=== PATIENT | male | born 1955 | race Caucasian/White ===

== ENCOUNTER → 2019-01-20 | Outpatient (CLI) | payer BC ==
[2019-01-20 16:56] LABS: Albumin 4.3 g/dL (3.80-4.90); Albumin/Globulin Ratio 2.15 (1.60-3.17); Anion Gap 7.1 mmol/L (4.00-12.00); Calcium 9.7 mg/dL (8.7-10.3); Carbon Dioxide 28.9 mmol/L (21.6-31.8); LDL Cholesterol,Calculated 25.2 mg/dL (0.0-131.0); Potassium 3.7 mmol/L (3.5-5.5); Total Bilirubin 0.5 mg/dL (0.3-1.2); Total Protein 6.3 g/dL (6.2-8.2); VLDL Calculation 19.8 mg/dL (5.00-40.00)
[2019-01-20 16:57] LABS: Hemoglobin A1C 7.3 % (4.0-6.0)
== END | disposition home or self-care (01) ==
LOC: LABWHC1 08:17
PROVIDERS: ATTEND Internal Medicine Endocrinology, Diabetes & Metabolism
DX: E11.65 Type 2 diabetes mellitus with hyperglycemia (principal)
CPT/HCPCS: 36415; 80053; 80061; 82043; 82570; 83036; 84443

== ENCOUNTER → 2020-03-28 | Outpatient (CLI) | payer MEDICARE ==
[2020-03-28 13:21] LABS: Urine Creatinine 130.4 mg/dL
[2020-03-28 15:13] LABS: Hemoglobin A1C 8.2 % (4.0-6.0)
[2020-03-28 17:15] LABS: African American GFR (CKD) 82.4 (60.0-200.0); Albumin/Globulin Ratio 1.74 (1.60-3.17); Anion Gap 9.6 mmol/L (4.00-12.00); BUN/Creat Ratio 19.09 Ratio (12.00-20.00); Calcium 9.5 mg/dL (8.7-10.3); Carbon Dioxide 29.4 mmol/L (21.6-31.8); Chol/HDL Ratio 3.35; Globulin 2.3 g/dL (1.6-3.3); LDL Cholesterol,Calculated 36.4 mg/dL (0.0-131.0); Non-African American GFR(CKD) 71.1 (60.0-200.0); Potassium 4.1 mmol/L (3.5-5.5); Total Bilirubin 0.5 mg/dL (0.3-1.2); Total Protein 6.3 g/dL (6.2-8.2); VLDL Calculation 17.6 mg/dL (5.00-40.00)
== END | disposition home or self-care (01) ==
LOC: LABWHC1 07:59
PROVIDERS: ATTEND Internal Medicine Endocrinology, Diabetes & Metabolism
DX: E11.65 Type 2 diabetes mellitus with hyperglycemia (principal)
CPT/HCPCS: 36415; 80053; 80061; 82043; 82570; 83036; 84443

== ENCOUNTER → 2020-07-03 | Outpatient (CLI) | payer MEDICARE ==
[2020-07-03 17:56] LABS: African American GFR (CKD) 81.8 (60.0-200.0); Albumin 4.3 g/dL (3.80-4.90); Albumin/Globulin Ratio 1.79 (1.60-3.17); Anion Gap 14.8 mmol/L (4.00-12.00); BUN/Creat Ratio 15.45 Ratio (12.00-20.00); Calcium 9.6 mg/dL (8.7-10.3); Carbon Dioxide 25.2 mmol/L (21.6-31.8); Chol/HDL Ratio 3.57; Globulin 2.4 g/dL (1.6-3.3); LDL Cholesterol,Calculated 13.4 mg/dL (0.0-131.0); Non-African American GFR(CKD) 70.6 (60.0-200.0); Potassium 3.7 mmol/L (3.5-5.5); Total Bilirubin 0.9 mg/dL (0.2-1.2); Total Protein 6.7 g/dL (6.2-8.2); VLDL Calculation 22.6 mg/dL (5.00-40.00)
== END | disposition home or self-care (01) ==
LOC: LABWHC1 09:21
PROVIDERS: ATTEND Internal Medicine Endocrinology, Diabetes & Metabolism
DX: E11.65 Type 2 diabetes mellitus with hyperglycemia (principal)
CPT/HCPCS: 36415; 80053; 80061; 82043; 82570; 84443

== ENCOUNTER → 2021-01-11 | Outpatient (CLI) | payer MEDICARE ==
[2021-01-11 20:53] LABS: Hemoglobin A1C 7.2 % (4.0-6.0)
[2021-01-11 23:21] LABS: African American GFR (CKD) 104.2 (60.0-200.0); Albumin 4.3 g/dL (3.80-4.90); Albumin/Globulin Ratio 2.15 (1.60-3.17); Anion Gap 11.1 mmol/L (4.00-12.00); BUN/Creat Ratio 22.22 Ratio (12.00-20.00); Carbon Dioxide 28.9 mmol/L (21.6-31.8); Chol/HDL Ratio 3.09; LDL Cholesterol,Calculated 26.8 mg/dL (0.0-131.0); Non-African American GFR(CKD) 89.9 (60.0-200.0); Potassium 3.2 mmol/L (3.5-5.5); Total Bilirubin 0.7 mg/dL (0.2-1.2); Total Protein 6.3 g/dL (6.2-8.2); VLDL Calculation 19.2 mg/dL (5.00-40.00)
== END | disposition home or self-care (01) ==
LOC: LABWHC1 11:10
PROVIDERS: ATTEND Internal Medicine Endocrinology, Diabetes & Metabolism
DX: E11.65 Type 2 diabetes mellitus with hyperglycemia (principal)
CPT/HCPCS: 36415; 80053; 80061; 82043; 82570; 83036; 84443

== ENCOUNTER 2021-05-22 10:03 | Outpatient (CLI) | payer MEDICARE | END 2021-05-22 10:32 | disposition home or self-care (01) | LOC: LABWHC1 10:03 | PROVIDERS: ATTEND Family Medicine | DX: Z53.9 Procedure and treatment not carried out, unspecified reason (principal) ==

== ENCOUNTER → 2021-05-27 | Outpatient (CLI) | payer MEDICARE ==
[2021-05-27 11:49] LABS: Urine Creatinine 144.6 mg/dL
[2021-05-27 12:29] LABS: Hemoglobin A1C 7.1 % (4.0-6.0)
[2021-05-27 14:12] LABS: African American GFR (CKD) 103.5 (60.0-200.0); Albumin 4.1 g/dL (3.80-4.90); Albumin/Globulin Ratio 1.86 (1.60-3.17); BUN/Creat Ratio 21.11 Ratio (12.00-20.00); Calcium 9.4 mg/dL (8.7-10.3); Chol/HDL Ratio 2.35; Globulin 2.2 g/dL (1.6-3.3); Non-African American GFR(CKD) 89.3 (60.0-200.0); Potassium 3.9 mmol/L (3.5-5.5); Total Bilirubin 0.7 mg/dL (0.2-1.2); Total Protein 6.3 g/dL (6.2-8.2)
== END | disposition home or self-care (01) ==
LOC: LABWHC1 07:01
PROVIDERS: ATTEND Internal Medicine Endocrinology, Diabetes & Metabolism
DX: E11.65 Type 2 diabetes mellitus with hyperglycemia (principal)
CPT/HCPCS: 36415; 80053; 80061; 82043; 82570; 83036; 84443

== ENCOUNTER → 2021-10-08 | Outpatient (CLI) | payer MEDICARE ==
[2021-10-08 13:58] LABS: Appearance,Urine Clear (Clear); Bilirubin,Urine Negative (Negative); Blood,Urine Negative (Negative); Color,Urine Yellow; Glucose,Urine (UA) Negative (Negative); Ketones,Urine Negative (Negative); Leukocyte Esterase,Urine Negative (Negative); Mucus,Urine Rare /hpf; Nitrite,Urine Negative (Negative); PH, Urine 6.5 (5.0-8.0); Protein,Urine 1+ (Negative); Specific Gravity,Urine 1.026 (1.001-1.035); Squamous Epithelial Cell,Urine <1 /hpf (0-4); Urobilinogen,Urine <2.0 mg/dL (<2.0); WBC,Urine 1 /hpf (0-5)
== END | disposition home or self-care (01) ==
LOC: LABWHC1 07:05
PROVIDERS: ATTEND Specialist
DX: Z01.812 Encounter for preprocedural laboratory examination (principal); M54.12 Radiculopathy, cervical region; Z98.1 Arthrodesis status; M47.12 Other spondylosis with myelopathy, cervical region
CPT/HCPCS: 81001

== ENCOUNTER → 2021-12-31 | Outpatient (CLI) | payer MEDICARE ==
--- NOTE | 2021-12-31 19:54 | CT ---
EXAMINATION TYPE: CT cervical spine wo con CT DLP: 994.20 mGycm, Automated exposure control for dose reduction was used. DATE OF EXAM: 12/31/2021 3:49 PM COMPARISON: None. CLINICAL INDICATION:Male, 66 years old with history of M47.12, recent cervical fusion evaluation TECHNIQUE: Axial CT images from the skull base to the inferior aspect of T2 we obtained without intra venous contrast. Coronal and sagittal reformatted images were also reviewed. FINDINGS: Fracture: None. Osseous structures: Fixation hardware involving C4, C5, C6 and C7. Hardware appears intact. Multileve l degenerative disc disease changes with endplate spurring and disc osteophyte complex's. Vertebral alignment: Straightening of the cervical alignment. Spinal canal/Neural Foramina: No evidence of significant spinal canal narrowing. Facet joint uncovert ebral joint arthropathy scattered throughout the cervical spine with varying degrees of neural forami nal stenosis worse at C6-C7 bilaterally. Neck soft tissues: Prevertebral soft tissues are within normal limits. 3 mm left thyroid lobe nodule. Other: The airway is patent. The lung apices are clear. Mild scattered multifocal mucosal thickening. IMPRESSION: 1. Postsurgical changes of C4-C7 with hardware intact. No evidence for acute fracture. 2. Neural foraminal narrowing at worse at C6-C7 bilaterally secondary to facet joint uncovertebral j oint arthropathy.
== END | disposition home or self-care (01) ==
LOC: RADCTMAIN 15:21
PROVIDERS: ATTEND Specialist
DX: M47.12 Other spondylosis with myelopathy, cervical region (principal); M99.71 Connective tissue and disc stenosis of intervertebral foramina of cervical region; Z98.1 Arthrodesis status
CPT/HCPCS: 72125

== ENCOUNTER → 2022-01-20 | Outpatient (CLI) | payer MEDICARE ==
--- NOTE | 2022-01-20 12:09 | CT ---
EXAMINATION TYPE: CT shoulder RT wo con DATE OF EXAM: 01/20/2022 COMPARISON: Outside radiographs 01/02/2022 HISTORY: 66-year-old male M19.011, Right shoulder pain no injury TECHNIQUE: Contiguous axial scanning of the right shoulder without IV contrast. Coronal and sagittal reconstructions performed. CT DLP: 375 mGycm Automated exposure control for dose reduction was used. FINDINGS: ACDF hardware partially visualized. Moderate degenerative joint space narrowing at the AC joint with marginal spurring and capsular hypertrophy. No atrophy of the rotator cuff musculature. No effusion within the subacromial/subdeltoid bursa. Suba cromial space is preserved. However, there is bony irregularity at the greater and lesser tuberosity. Bony spurring along the bic ipital groove. There is moderate to severe narrowing of cartilage and joint space posteriorly along the glenohumeral joint with some bony remodeling resulting in 16 degrees of glenoid retroversion. Associated subchond ral cystic change and marginal spurring is present. Mild overall loss of posterior and inferior gleno id bone stock. No acute fracture seen. No subluxation or dislocation. IMPRESSION: 1. MODERATE OVERALL GLENOHUMERAL JOINT OA BUT WITH MORE SEVERE LOSS OF CARTILAGE AND JOINT SPACE POST ERIORLY RESULTING IN 16 DEGREES OF GLENOID RETROVERSION AND MILD LOSS OF GLENOID BONE STOCK POSTERIOR LY AND INFERIORLY. 2. MODERATE AC JOINT OA. 3. BONY SPURRING AT THE GREATER AND LESSER TUBEROSITIES COMPATIBLE CHRONIC ROTATOR CUFF TENDINOPATHY. THERE IS NO ROTATOR CUFF MUSCLE ATROPHY.
== END | disposition home or self-care (01) ==
LOC: RADCTMAIN 09:26
PROVIDERS: ATTEND Orthopaedic Surgery
DX: M19.011 Primary osteoarthritis, right shoulder (principal); M25.811 Other specified joint disorders, right shoulder

== ENCOUNTER 2022-05-20 11:07 | Inpatient (IN) | payer MEDICARE ==
--- NOTE | 2022-05-19 08:48 | P.HPOR ---
History of Present Illness H&P Date: 05/19/22 Chief Complaint: Right shoulder pain The patient is a 66-year-old [id number]-[id number] retired male presents with progressive right shoulder pain for the past several years worsening recently. He is having anterior pain particularly with overhead activity and at night. He tried medications in addition to therapy and injections without much relief. He feels it's getting worse. Review of Systems As per HPI Past Medical History Past Medical History: Diabetes Mellitus, Hypertension Past Surgical History: Bariatric Surgery, Orthopedic Surgery (Bilateral knee arthroscopy, cervical fusion) Smoking Status: Never smoker Past Alcohol Use History: Occasional Medications and Allergies Home Medications and Allergies Comment(s): Actos, amitriptyline, atenolol, atorvastatin, gabapentin, hydrocodone, metformin, omeprazole, meclizine. 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 HEENT exam is nonfocal. He has limited cervical spine motion with negative Spurling's. His distal neurovascular exam appears intact in the right upper extremity. - Diagnostic results Shoulder x-ray: image reviewed (3 views of the right shoulder shows severe glenohumeral joint space narrowing with wjmt-lq-fims changes.) Assessment and Plan Assessment: Right severe glenohumeral joint osteoarthrosis Fqj-cstbzrd-ebtszughn dependent diabetes Obesity Plan: I talked to the patient length regarding his condition along with treatment options. This point he is having persistent significant symptoms related to osteoarthrosis despite conservative measures. After thorough discussion he opted to proceed with surgery. We'll plan to proceed with right total shoulder arthroplasty. Risks and benefit were discussed at length in layman's terms. Time with Patient: Less than 30
[2022-05-19 10:06] VITALS: BMI 32.5
[~2022-05-20 11:07] MED LIST: ACETAMINOPHEN TAB 500 MG TAB PO PRN; DEXAMETHASONE SOD PHOSPHATE 4 MG/ML 1 ML VIAL IV ONE; HYDROmorphone 0.5 MG/0.5 ML SYRINGE IVP PRN; LIDOCAINE 1% (10MG/ML) FOR IV START INTRADERMA PRN; MELOXICAM 7.5 MG TAB PO PRN; MIDAZOLAM 2 MG/2 ML VIAL IV PRN; ONDANSETRON 4 MG/2 ML VIAL IVP ONE; TRANEXAMIC ACID IN NACL,ISO-OS 1,000 MG in SALINE 1 100ML.BAG IVPB PRN
[2022-05-20] MEDS ORDERED: ONDANSETRON 4 MG/2 ML VIAL ONE (12:17)
[2022-05-20 12:18] LABS: Glucose,Whole Blood 106 mg/dL (70-110)
[2022-05-20] MEDS: LACTATED RINGERS 1,000 ML IV SCH (12:20)
[2022-05-20] MEDS ORDERED: fentaNYL (PF) 50 MCG/ML 2 ML AMP IVP ONE (12:28)
--- NOTE | 2022-05-20 12:50 | P.ANPRN ---
Procedure Note - Anesthesia - Nerve Block Performed Right Interscalene Single Time Out Performed: Yes ([id number]) Date of Procedure: 05/20/22 Procedure Start Time: : Procedure Stop Time: : Location of Patient: PreOp Indication: Acute Post-Operative Pain, Requested by Surgeon Specifically requested for management of pain by : Zach Maradiaga Sedation Type: Sedate with meaningful contact maintained Preparation: Sterile Prep Position: Supine Catheter: None Needle Types: Pajunk Needle Gauge: 21 Ultrasound used to visualize needle placement: Yes Ultrasound used to observe medication spread: Yes Injectate: 0.5% Ropivacaine (see comment for volume) (30cc) Blood Aspirated: No Pain Paresthesia on Injection Noted: No Resistance on Injection: Normal Image Stored and Saved: Yes Events: Uneventful and Well Tolerated
[2022-05-20] MEDS ORDERED: ROCURONIUM 10 MG/ML (5 ML VIAL) IV ONE (13:00)
[2022-05-20] MEDS ORDERED: PHENYLEPHRINE-0.9% NACL SYG 1,000 MCG/10 ML SYRINGE ONE (13:00)
[2022-05-20] MEDS ORDERED: fentaNYL (PF) 50 MCG/ML 2 ML AMP ONE (13:00)
[2022-05-20] MEDS ORDERED: SUCCINYLCHOLINE CHLORIDE 200 MG/10 ML VIAL IV ONE (13:00)
[2022-05-20] MEDS ORDERED: TRANEXAMIC ACID IN NACL,ISO-OS 1,000 MG/100 ML BAG ONE (13:00)
[2022-05-20] MEDS ORDERED: ROPIVACAINE 5 MG/ML 30 ML VIAL ONE (13:00)
[2022-05-20] MEDS ORDERED: GLYCOPYRROLATE 0.2 MG/ML 2 ML VIAL ONE (13:00)
[2022-05-20] MEDS ORDERED: NEOSTIGMINE 1 MG/ML 10 ML VIAL ONE (13:00)
[2022-05-20] MEDS ORDERED: LIDOCAINE 2% INJ 20 MG/ML (2 ML VIAL) ONE (13:00)
[2022-05-20] MEDS ORDERED: ePHEDrine 50 MG/ML 1 ML VIAL ONE (13:00)
[2022-05-20] MEDS ORDERED: PROPOFOL 10 MG/ML 20 ML VIAL IV ONE (13:00)
[2022-05-20] MEDS ORDERED: ceFAZolin 1,000 MG in SODIUM CHLORIDE 0.9% 1,000 ML IRRIGATION ONE (13:44)
[2022-05-20] MEDS ORDERED: SENNOSIDES-DOCUSATE SODIUM 1 EACH TAB PO PRN (15:13)
[2022-05-20] MEDS ORDERED: HYDROmorphone 0.5 MG/0.5 ML SYRINGE IVP PRN (15:13)
[2022-05-20] MEDS ORDERED: ONDANSETRON 4 MG/2 ML VIAL IVP PRN (15:13)
[2022-05-20] MEDS ORDERED: HYDROcodone/APAP 10-325MG 1 EACH TAB PO PRN (15:15)
[2022-05-20] MEDS ORDERED: LACTATED RINGERS 1,000 ML IV ONE (15:20)
--- NOTE | 2022-05-20 15:40 | P.OP ---
Date of Procedure: 05/20/22 Preoperative Diagnosis: Severe right glenohumeral joint osteoarthrosis Postoperative Diagnosis: Same Procedure(s) Performed: Right total shoulder arthroplasty Implants: Arthrex eclipse size 49 x 18 humeral head, large cage screw, 49 mm trunnion, large glenoid. Anesthesia: alex WEBB Surgeon: Zach Maradiaga Offset Plate Maker #1: Silvio Harmon Estimated Blood Loss (ml): 200 Pathology: other (Humeral head) Condition: stable Disposition: PACU Indications for Procedure: The patient's 67-year-old male who presents with progressive right shoulder pain secondary to osteoporosis despite conservative measures. A discussion of the r isks and benefits of operative intervention versus continued conservative measures was made with patient. He opted to proceed with surgery. Operative risks to include infection, neurovascular injury, development of blood clots, possible component loosening/failure need for subsequent procedures was discussed. Informed consent was obtained. Operative Findings: As below Description of Procedure: The patient was brought to the operating room, and after induction of general anesthesia was placed in the beachchair position. The bony prominences were appropriately padded. The right upper extremity was prepped and draped in normal fashion. A deltopectoral incision was then made lateral to the coracoid process extending approximately 12 cm. The skin was incised sharply. Subcutaneous tissues were divided bluntly. Electrocautery was used for hemostasis. The deltopectoral interval was identified and the cephalic vein gently retracted laterally with the deltoid. Subdeltoid adhesions were bluntly dissected. A self-retaining retractor was placed. The clavipectoral fascia was opened and the conjoined tendon gently retracted medially. The upper one third of the pectoralis major was released to help facilitate exposure. The biceps was identified and the sheath was opened. The rotator interval was opened. The biceps was tenotomized and allowed to retract distally. The subscap was peeled off the lesser tuberosity and tagged. The humeral head was then exposed releasing the capsule off the humeral neck. The shoulder was gently dislocated. The cutting guide was placed planning on a cut flush with the rotator cuff insertion and 30 of retroversion. The cutting block was pinned in place. The humeral head cut was then made. The metaphyseal trunnion measured 49 mm. The central trunnion was hand drilled. Residual inferior osteophytes were carefully removed flush with the [place] cortical bone. A humeral neck protecting plate was placed. A posterior glenoid retractor was placed. The glenoid was then exposed releasing the labrum from the 12-6 o'clock position. Residual labral tissue was removed. The glenoid sized at a large as preoperatively planned. A guidewire was then inserted utilizing the guide as preoperatively planned. The glenoid was reamed down to a bleeding bony surface. The central peg hole was drilled. The alignment guide was placed in the peripheral peg holes drilled. The trial large glenoid was placed and was fully seated. There was good anterior to posterior and inferior to superior fit. The trial component was removed. Pulsatile lavage was utilized. The bony surface was dried. The peripheral peg holes were then pressurized with cement utilizing a syringe. Excess cement was removed. A glenoid component was then placed and was fully seated. This was gently impacted. This was held in place until the cement had sufficiently hardened. Attention was then paid again towards preparing the proximal humerus. The large cage screw was inserted over the trunion after it was fully seated. Good purchase was obtained. A trial 49 x 18 mm head was placed. The shoulder was gently reduced. It was taken through a range of motion. It was felt to be stable in flexion and extension with internal and external rotation. I felt there was adequate adventism of soft tissue tension. The shoulder was gently dislocated. The trial components were then removed. The alignment guide was placed for placement of the 2.6 mm fiber tacks along the medial lesser tuberosity loaded with fiber tape for reattachment of the subscapularis. The humeral head was then impacted. The shoulder was then gently reduced and taken through range of motion and was felt to be stable. Pul satile lavage was utilized. The subscapularis repair was then completed with 2 lateral swivel lock anchors. The rotator interval was closed with #2 Ethibond suture. She had minimal drainage at this point therefore a deep drain was not placed. The deltopectoral interval was closed with interrupted 2-0 Vicryl sutures. The subcu tissues were reapproximated with interrupted 2-0 Vicryl sutures. The skin was reapproximated with 3-0 subcuticular Prolene suture. Steri-Strips were applied. A sterile dressing was applied in addition to a sling. The patient was then awoken from general anesthesia and transferred to recovery room in good condition. Blood loss was estimated at 200 mL. No complications were incurred. Sponge and needle counts were correct at the end the case. Tae TAN assisted during the major components the case to include positioning, exposure, resection, implantation, and closure.
--- NOTE | 2022-05-20 16:15 | XR ---
EXAMINATION TYPE: XR shoulder limited RT DATE OF EXAM: 05/20/2022 CLINICAL HISTORY: Right shoulder pain and arthritis. TECHNIQUE: Single frontal view of the right shoulder is obtained postoperatively. COMPARISON: CT right shoulder January 20, 2022. FINDINGS: Metallic prosthesis in the medial aspect humeral head now present. Alignment and position a ppear satisfactory. Diminish inspiration incidentally noted. IMPRESSION: As above.
[2022-05-20 21:14] LABS: Glucose,Whole Blood 233 mg/dL (70-110)
[2022-05-21] MEDS ORDERED: TEMAZEPAM 15 MG CAP PO PRN (01:26)
[2022-05-21 01:48] VITALS: RESP 18
[2022-05-21] MEDS: LACTATED RINGERS 1,000 ML IV SCH (02:22)
[2022-05-21] MEDS: HYDROmorphone 1 MG/ML 1 ML SYRINGE IVP PRN ×2 (05:34→09:01)
[2022-05-21 07:07] LABS: Glucose,Whole Blood 215 mg/dL (70-110)
[2022-05-21 08:00] VITALS: BP 116/64; PULSE 70; TEMP 98.8
[2022-05-21] MEDS ORDERED: hydrOXYzine pamoate 25 MG CAP PO PRN (08:02)
[2022-05-21 09:17] LABS: Basophils # (A) 0.02 X 10*3/uL (0.00-0.10); Basophils % (A) 0.2 %; Eosinophils # (A) 0.01 X 10*3/uL (0.04-0.35); Eosinophils % (A) 0.1 %; HCT 35.8 % (39.6-50.0); Immature Grans, Automated 0.5 %; Lymphocytes # (A) 1.06 X 10*3/uL (0.90-5.00); MCH 29.9 pg (27.0-32.0); MCHC 33.5 g/dL (32.0-37.0); MCV 89.1 fL (80.0-97.0); Mean Platelet Volume 10.5 fL (9.5-12.2); Monocytes # (A) 0.74 X 10*3/uL (0.20-1.00); NRBC Per 100 WBC 0 /100 WBCS (0.0-0.0); Neutrophils # (A) 8.73 X 10*3/uL (1.80-7.70); Neutrophils % (A) 82.2 %; Platelet Count 212 X 10*3/uL (140-440); RBC 4.02 X 10*6/uL (4.40-5.60); RDW 13.7 % (11.5-14.5); WBC 10.61 X 10*3/uL (4.50-10.00)
[2022-05-21] MEDS ORDERED: DEXTROSE 50% SYRINGE 50 ML IVP PRN ×2 (09:33)
--- NOTE | 2022-05-21 09:57 | P.PN ---
Subjective Progress Note Date: 05/21/22 Principal diagnosis: Status post right total shoulder arthroplasty Patient evaluated today at bedside, he is resting in his hospital bed. Patient was having a little bit of trouble with pain control this morning, he did utilize some Dilaudid which has helped. Patient does state [place] 10 mg/325 mg as needed at home for other chronic medical issues. Currently patient denies a ny headaches, lightheadedness, chest pain or shortness of breath. Objective - Vital Signs Vital signs: Vital Signs Temp 98.8 F 05/21/22 08:00 Pulse 70 05/21/22 08:00 Resp 18 05/21/22 08:00 BP 116/64 05/21/22 08:00 Pulse Ox 95 05/21/22 08:00 FiO2 Intake & Output 05/20/22 05/21/22 05/21/22 18:59 06:59 18:59 Intake Total 1351 Output Total 800 600 Balance 551 -600 Weight 104.7 kg Intake: IV 1351 Output: Urine 600 600 Estimated Blood Loss 200 - Exam Right lower extremity: Postoperative bandage was removed, Steri-Strips and suture in good position and condition. Ecchymosis and minor swelling are noted in the upper extremity. Elbow extension and flexion are intact, wrist extension and flexion are intact. Sensory exam to light touch throughout the extremity is intact. Radial/ulnar pulses are 2+ - Labs CBC & Chem 7: 05/21/22 05:20 Labs: Abnormal Lab Results - Last 24 Hours (Table) 05/20/22 05/21/22 05/21/22 Range/Units 21:13 05:20 07:06 WBC 10.61 H (4.50-10.00) X 10*3/uL RBC 4.02 L (4.40-5.60) X 10*6/uL Hgb 12.0 L (13.0-17.0) g/dL Hct 35.8 L (39.6-50.0) % Immature Gran # 0.05 H (0.00-0.04) X 10*3/uL Neutrophils # 8.73 H (1.80-7.70) X 10*3/uL Eosinophils # 0.01 L (0.04-0.35) X 10*3/uL POC Glucose (mg/dL) 233 H 215 H (70-110) mg/dL Assessment and Plan Assessment: Postoperative day #1 status post right total shoulder arthroplasty Plan: Pain control, patient will resume [place] 10 mg/325 mg once home DVT prophylaxis, aspirin 325 mg daily for 2 weeks Wound care instructions discussed, showering instructions along with icing instructions were discussed Activity level restrictions were discussed, this to include use of the arm sling Medical recommendations Discharge planning: Patient stable for discharge home today Time with Patient: Less than 30
--- NOTE | 2022-05-21 10:01 | P.DS ---
Providers Date of admission: 05/20/22 11:07 Expected date of discharge: 05/21/22 Attending physician: Zach Maradiaga Consults: 05/20/22 15:15 Consult Physician Routine Consulting Provider: Angie Davison Consult Reason/Comments: Medical Management Do you want consulting provider notified?: Yes Primary care physician: Aissatou Gonzalez DO Hospital Course: Date of admission: 05/20/2022 Date of discharge: 05/21/2022 Admission diagnosis: Status post right total shoulder arthroplasty Discharge diagnosis: Same Attending physician: Dr. Maradiaga Surgical procedures: Right total shoulder arthroplasty Brief history: Patient is a 67-year-old male with a history of progressive primary right shoulder osteoarthritis. At this point patient has failed conservative treatment measures and has opted to proceed with a elective right total shoulder arthroplasty. Hospital course: Details of patient's surgery can be found in operative report. Patient tolerated the procedure well and was subsequently transported to orthopedic floor. Patient's orthopeidc and medical care was provided daily. Patient had daily laboratory tests performed for evaluation of overall blood counts. Patient had daily physical therapy to include strengthening range of motion as well as education with walker ambulation. Patient was treated with aspirin for their postoperative DVT prophylaxis during their inpatient stay. Patient was noted to have a relatively uneventful postoperative course. Patient reported satisfactory pain control with oral pain medications by postoperative day 0. Patient showed satisfactory progress with physical therapy. Patient moved steadily through the program and had no difficulty meeting the goals by postoperative day 1. Given patient's otherwise satisfactory course and having met physical therapy goals, plan is to discharge patient home on postoperative day 1. Discharge condition/disposition: Patient will be discharged home in stable condition. Discharge medications: Instructions are given on resumption of patient's normal daily medications per primary care recommendation, in addition patient will be prescribed [place] 10 mg/325 mg, aspirin 325 mg. Discharge instructions: 1. Wound care and infection precautions, keep incision dry and covered while showering, no lotions, creams, moisturizers. No soaking, tubs, pools, hottubs. Do not scrub over the incision. 2. Utilize arm sling 3. Ice and elevate when necessary. Do not exceed 20 minutes per hour with ice pack. 4. Utilize compression sleeve until seen at first follow up appointment. 7. Pain meds and anticoagulants per prescription. 8. Pain medication has potential to cause constipation. Increase oral fluid and fiber intake. Contact primary care provider if you have not had a bowel movement within 48 hours after discharge 9. No anti-inflammatory medication until discussed at first post operative visit, this including Motrin, Aleve, Mobic, Diclofenac. 10. Follow up in office at 2 weeks postop with Tae Harmon PA-C/Gaurav Martin 11. Follow up with your primary care doctor 7-10 days after discharge. 12. Contact [facility] with any questions, . Procedures: Right total shoulder arthroplasty Patient Condition at Discharge: Good Plan - Discharge Summary Discharge Rx Participant: Yes New Discharge Prescriptions: New HYDROcodone/APAP 10-325MG [[place] 10-325] 1 tab PO Q6HR PRN 7 Days #21 tab PRN Reason: Pain Aspirin 325 mg PO DAILY #14 tab No Action Pioglitazone [Actos] 45 mg PO DAILY Potassium Chloride ER [K-Dur 20] 20 meq PO DAILY Multivit-Min/FA/Lycopen/Lutein [Centrum Silver Tablet] 1 each PO DAILY Tamsulosin HCl [Flomax] 0.4 mg PO BID Gabapentin [Neurontin] 300 mg PO TID Atenolol/Chlorthalidone [Atenolol-Chlorthalidone 100-25] 1 each PO DAILY Meclizine [Antivert] 25 mg PO BID Albuterol Inhaler [Ventolin Hfa Inhaler] 1 - 2 puff INHALATION Q6H PRN PRN Reason: Shortness Of Breath [id number] [Excedrin] 2 each PO ONCE PRN PRN Reason: Pain Atorvastatin [Lipitor] 10 mg PO HS Cetirizine HCl 10 mg PO BID Gabapentin [Neurontin] 800 mg PO TID Amitriptyline HCl [Elavil] 50 mg PO HS Omeprazole 20 mg PO DAILY metFORMIN HCL [Glucophage] 1,000 mg PO BID Rosanna 550 mg PO BID HYDROcodone/APAP 10-325MG [[place] 10-325] 1 tab PO Q6HR PRN PRN Reason: Pain Naproxen Sodium [Aleve] 440 mg PO BID PRN PRN Reason: Pain Discharge Medication List Albuterol Inhaler [Ventolin Hfa Inhaler] 1 - 2 puff INHALATION Q6H PRN 05/19/22 [History] Amitriptyline HCl [Elavil] 50 mg PO HS 05/19/22 [History] [id number]-[id number]-[id number] [phone] [Excedrin] 2 each PO ONCE PRN 05/19/22 [History] Atenolol/Chlorthalidone [Atenolol-Chlorthalidone 100-25] 1 each PO DAILY 05/19/22 [History] Atorvastatin [Lipitor] 10 mg PO HS 05/19/22 [History] Cetirizine HCl 10 mg PO BID 05/19/22 [History] Gabapentin [Neurontin] 300 mg PO TID 05/19/22 [History] Gabapentin [Neurontin] 800 mg PO TID 05/19/22 [History] Rosanna 550 mg PO BID 05/19/22 [History] HYDROcodone/APAP 10-325MG [[place] 10-325] 1 tab PO Q6HR PRN 05/19/22 [History] Meclizine [Antivert] 25 mg PO BID 05/19/22 [History] Multivit-Min/FA/Lycopen/Lutein [Centrum Silver Tablet] 1 each PO DAILY 05/19/22 [History] Naproxen Sodium [Aleve] 440 mg PO BID PRN 05/19/22 [History] Omeprazole 20 mg PO DAILY 05/19/22 [History] Pioglitazone [Actos] 45 mg PO DAILY 05/19/22 [History] Potassium Chloride ER [K-Dur 20] 20 meq PO DAILY 05/19/22 [History] Tamsulosin HCl [Flomax] 0.4 mg PO BID 05/19/22 [History] metFORMIN HCL [Glucophage] 1,000 mg PO BID 05/19/22 [History] Aspirin 325 mg PO DAILY #14 tab 05/21/22 [Rx] HYDROcodone/APAP 10-325MG [[place] 10-325] 1 tab PO Q6HR PRN 7 Days #21 tab 05/21/22 [Rx] Follow up Appointment(s)/Referral(s): Gaurav Figueredo PAC [PHYSICIAN REHABILITATION TEACHER] - 2 Weeks Patient Instructions/Handouts: Shoulder Arthroplasty (DC) Activity/Diet/Wound Care/Special Instructions: Orthopedic Discharge Instructions: 1. Wound care and infection precautions, keep incision dry and covered while showering, no lotions, creams, moisturizers. No soaking, pools, hot tubs. Do not scrub over incision. 2. Nonweightbearing right upper extremity until follow-up. 3. Ice when necessary. Do not exceed 20 minutes per hour with ice pack. 4. Maintain right upper extremity in arm sling at all times. May remove sling to shower 5. Pain meds and anticoagulants per prescription. 6. Pain medication has potential to cause constipation. Increase oral fluid and fiber intake. Contact primary care provider if you have not had a bowel movement within 48 hours after discharge. 7. No anti-inflammatory medication until discussed at first post operative visit, this including Motrin, Aleve, Mobic, Diclofenac. 8. Follow up in office at 2 weeks postop with Tae Harmon PA-C / Gaurav Figueredo PA-C 9. Follow up with your primary care doctor 7-10 days after discharge. 10. Contact [facility] with any questions, . Discharge Disposition: HOME WITH HOME HEALTH SERVICES
--- NOTE | 2022-05-21 11:56 | P.CONS ---
History of Present Illness - Reason for Consult Consult date: 05/21/22 Medical management - History of Present Illness History of present illness; Patient is 66-year-old gentleman with past medical history significant for diabetes mellitus, hypertension who presented to the hospital for elective procedure with orthopedic for right shoulder arthroplasty. Patient has been having right shoulder pain for several years which has been worsening. Patient was seen by orthopedic outpatient and they recommended surgery to which patient agreed. Postoperatively internal medicine team has been consulted for medical management REVIEW OF SYSTEMS: CONSTITUTIONAL: No fever, no malaise, no fatigue. HEENT: No recent visual problems or hearing problems. Denied any sore throat. CARDIOVASCULAR: No chest pain, orthopnea, PND, no palpitations, no syncope. PULMONARY: No shortness of breath, no cough, no hemoptysis. GASTROINTESTINAL: No diarrhea, no nausea, no vomiting, no abdominal pain. NEUROLOGICAL: No headaches, no weakness, no numbness. HEMATOLOGICAL: Denies any bleeding or petechiae. GENITOURINARY: Denies any burning micturition, frequency, or urgency. MUSCULOSKELETAL/RHEUMATOLOGICAL: Right shoulder pain ENDOCRINE: Denies any polyuria or polydipsia. The rest of the 14-point review of systems is negative. Past Medical History Past Medical History: Diabetes Mellitus, Hypertension Past Surgical History: Bariatric Surgery, Orthopedic Surgery (Bilateral knee arthroscopy, cervical fusion) Smoking Status: Never smoker Past Alcohol Use History: Occasional Medications and Allergies Home Medications and Allergies Comment(s): Actos, amitriptyline, atenolol, atorvastatin, gabapentin, hydrocodone, metformin, omeprazole, meclizine. PHYSICAL EXAMINATION: GENERAL: The patient is alert and oriented x3, not in any acute distress. Well developed, well nourished. HEENT: Pupils are round and equally reacting to light. EOMI. No scleral icterus. No conjunctival pallor. Normocephalic, atraumatic. No pharyngeal erythema. No thyromegaly. CARDIOVASCULAR: S1 and S2 present. No murmurs, rubs, or gallops. PULMONARY: Chest is clear to auscultation, no wheezing or crackles. ABDOMEN: Soft, nontender, nondistended, normoactive bowel sounds. No palpable organomegaly. MUSCULOSKELETAL: No joint swelling or deformity. EXTREMITIES: No cyanosis, clubbing, or pedal edema. Right upper extremity surgical incision seen, sling in place NEUROLOGICAL: Gross neurological examination did not reveal any focal deficits. SKIN: No rashes. Assessment Right severe glenohumeral joint osteoarthrosis Jxk-[id number]-qzenvoztl dependent diabetes Obesity Plan; Continue pain management per orthopedic continue DVT prophylaxis per orthopedics Resume home meds Monitor blood sugar levels, continue sliding scale insulin Past Medical History Past Medical History: Diabetes Mellitus, GERD/Reflux, Hypertension, Osteoarthritis (OA), Sleep Apnea/CPAP/BIPAP Additional Past Medical History / Comment(s): c-pap machine, menieres disease, sever nerve pain in hands & arms, BPH, hx kidney stones, states diarrhea from metformin., hx gastric sleeve., tinnitus. History of Any Multi-Drug Resistant Organisms: None Reported Past Surgical History: Appendectomy, Bariatric Surgery, Cholecystectomy, Orthopedic Surgery, Tonsillectomy Additional Past Surgical History / Comment(s): gastric sleeve (Jun 2020), cervical fusion C4-5 (oct 2021), panniculectomy ( February 2022)., cervical fusion C-5-6-7 (2003)., arthroscopy jaswinder knees ., sinus scrapped and drained. Past Anesthesia/Blood Transfusion Reactions: No Reported Reaction, Motion Sickness Past Psychological History: No Psychological Hx Reported Smoking Status: Former smoker Past Alcohol Use History: Rare Additional Past Alcohol Use History / Comment(s): quit smoking 30-40 years ago, smoked off and on. Past Drug Use History: None Reported - Past Family History Mother Family Medical History: Coronary Artery Disease (CAD) Brother(s) Family Medical History: Cancer Sister(s) Family Medical History: Cancer Medications and Allergies Home Medications Medication Instructions Recorded Confirmed Type Albuterol Inhaler [Ventolin Hfa 1 - 2 puff INHALATION Q6H PRN 05/19/22 05/20/22 History Inhaler] Amitriptyline HCl [Elavil] 50 mg PO HS 05/19/22 05/19/22 History Fktshld-Ctar-Nego [id number] 2 each PO ONCE PRN 05/19/22 05/19/22 History [Excedrin] Atenolol/Chlorthalidone 1 each PO DAILY 05/19/22 05/19/22 History [Atenolol-Chlorthalidone 100-25] Atorvastatin [Lipitor] 10 mg PO HS 05/19/22 05/19/22 History Cetirizine HCl 10 mg PO BID 05/19/22 05/19/22 History Gabapentin [Neurontin] 300 mg PO TID 05/19/22 05/19/22 History Gabapentin [Neurontin] 800 mg PO TID 05/19/22 05/19/22 History Rosanna 550 mg PO BID 05/19/22 05/20/22 History HYDROcodone/APAP 10-325MG [Provo 1 tab PO Q6HR PRN 05/19/22 05/20/22 History 10-325] Meclizine [Antivert] 25 mg PO BID 05/19/22 05/19/22 History Multivit-Min/FA/Lycopen/Lutein 1 each PO DAILY 05/19/22 05/19/22 History [Centrum Silver Tablet] Naproxen Sodium [Aleve] 440 mg PO BID PRN 05/19/22 05/19/22 History Omeprazole 20 mg PO DAILY 05/19/22 05/19/22 History Pioglitazone [Actos] 45 mg PO DAILY 05/19/22 05/19/22 History Potassium Chloride ER [K-Dur 20] 20 meq PO DAILY 05/19/22 05/19/22 History Tamsulosin HCl [Flomax] 0.4 mg PO BID 05/19/22 05/20/22 History metFORMIN HCL [Glucophage] 1,000 mg PO BID 05/19/22 05/20/22 History Aspirin 325 mg PO DAILY #14 tab 05/21/22 Rx HYDROcodone/APAP 10-325MG [Provo 1 tab PO Q6HR PRN 7 Days #21 tab 05/21/22 Rx 10-325] Allergies Allergy/AdvReac Type Severity Reaction Status Date / Time No Known Allergies Allergy Verified 05/20/22 11:44 Physical Exam Vitals: Vital Signs Temp Pulse Pulse Resp BP BP Pulse Ox 05/21/22 08:00 98.8 F 70 18 116/64 95 05/21/22 07:21 70 18 05/21/22 01:07 97.8 F 87 18 124/74 94 L 05/20/22 19:15 98.6 F 74 16 129/74 98 05/20/22 17:30 61 16 136/80 98 05/20/22 17:00 59 L 16 134/76 98 05/20/22 16:30 56 L 16 127/67 98 05/20/22 16:15 57 L 16 135/72 96 05/20/22 16:00 55 L 16 136/71 99 05/20/22 15:45 56 L 16 131/74 98 05/20/22 15:30 97.0 F L 64 13 144/70 97 05/20/22 12:37 60 16 167/85 100 05/20/22 12:00 97.1 F L 67 16 158/81 98 Intake and Output 05/20/22 05/21/22 05/21/22 22:59 06:59 14:59 Intake Total 300 Output Total 800 600 Balance -500 -600 Intake: IV 300 Output: Urine 600 600 Estimated Blood Loss 200 Other: Voiding Method Urinal Weight 104.7 kg Results CBC & Chem 7: 05/21/22 05:20 Labs: Abnormal Lab Results - Last 24 Hours (Table) 05/20/22 05/21/22 05/21/22 Range/Units 21:13 05:20 07:06 WBC 10.61 H (4.50-10.00) X 10*3/uL RBC 4.02 L (4.40-5.60) X 10*6/uL Hgb 12.0 L (13.0-17.0) g/dL Hct 35.8 L (39.6-50.0) % Immature Gran # 0.05 H (0.00-0.04) X 10*3/uL Neutrophils # 8.73 H (1.80-7.70) X 10*3/uL Eosinophils # 0.01 L (0.04-0.35) X 10*3/uL POC Glucose (mg/dL) 233 H 215 H (70-110) mg/dL
[2022-05-21] MEDS ORDERED: INSULIN ASPART (NovoLOG) 100 UNIT/ML VIAL SQ SCH (12:30)
== END 2022-05-21 11:45 | disposition home health service (06) | DRG 483 ==
LOC: 2ORMAIN 11:07 → 4SSUR 16:25
PROVIDERS: ADMIT Orthopaedic Surgery; ATTEND Orthopaedic Surgery
PROC: 3E0T3BZ Introduction of Anesthetic Agent into Peripheral Nerves and Plexi, Percutaneous Approach (ICD-10-PCS; 2022-05-20)
PROC: 0RRJ0JZ Replacement of Right Shoulder Joint with Synthetic Substitute, Open Approach (ICD-10-PCS; principal; 2022-05-20 12:50)
DX: M19.011 Primary osteoarthritis, right shoulder (principal); E11.9 Type 2 diabetes mellitus without complications; E66.9 Obesity, unspecified; H81.09 Meniere's disease, unspecified ear; Z68.33 Body mass index [BMI] 33.0-33.9, adult; I10 Essential (primary) hypertension; M81.0 Age-related osteoporosis without current pathological fracture; N40.0 Benign prostatic hyperplasia without lower urinary tract symptoms; Z79.4 Long term (current) use of insulin; Z79.82 Long term (current) use of aspirin; Z79.84 Long term (current) use of oral hypoglycemic drugs; Z79.899 Other long term (current) drug therapy; Z87.442 Personal history of urinary calculi; Z87.891 Personal history of nicotine dependence; Z98.84 Bariatric surgery status; Z90.49 Acquired absence of other specified parts of digestive tract
CPT/HCPCS: 64415; 76942; 85025

== ENCOUNTER → 2022-09-30 | Outpatient (CLI) | payer MEDICARE ==
[2022-09-30 10:48] LABS: ALT 17 U/L (10-49); AST 19 U/L (14-35); African American GFR (CKD) 90.5 (60.0-200.0); Albumin 4.3 g/dL (3.8-4.9); Albumin/Globulin Ratio 1.79 (1.60-3.17); Alkaline Phosphatase 72 U/L (41-126); Calcium 9.8 mg/dL (8.7-10.3); Carbon Dioxide 30.4 mmol/L (20.0-27.5); Chloride 103 mmol/L (96-109); Chol/HDL Ratio 2.82 Ratio; Globulin 2.4 g/dL (1.6-3.3); Glucose 152 mg/dL (70-110); Non-African American GFR(CKD) 78.1 (60.0-200.0); Sodium 144 mmol/L (135-145); Total Protein 6.7 g/dL (6.2-8.2)
== END | disposition home or self-care (01) ==
LOC: LABWHC1 07:09
PROVIDERS: ATTEND Internal Medicine Endocrinology, Diabetes & Metabolism
DX: E11.65 Type 2 diabetes mellitus with hyperglycemia (principal)
CPT/HCPCS: 36415; 80053; 80061; 82043; 82570; 83036; 84443

== ENCOUNTER → 2022-12-31 | Outpatient (CLI) | payer MEDICARE ==
[2022-12-31 11:36] LABS: ALT 18 U/L (10-49); AST 20 U/L (14-35); African American GFR (CKD) 90.5 (60.0-200.0); Albumin 4.4 g/dL (3.8-4.9); Albumin/Globulin Ratio 1.57 (1.60-3.17); Alkaline Phosphatase 81 U/L (41-126); Calcium 9.7 mg/dL (8.7-10.3); Carbon Dioxide 31.2 mmol/L (20.0-27.5); Chloride 99 mmol/L (96-109); Globulin 2.8 g/dL (1.6-3.3); Glucose 173 mg/dL (70-110); LDL Cholesterol,Calculated 33.5 mg/dL (0.0-131.0); Non-African American GFR(CKD) 78.1 (60.0-200.0); Potassium 3.5 mmol/L (3.5-5.5); Sodium 142 mmol/L (135-145); Total Protein 7.2 g/dL (6.2-8.2)
== END | disposition home or self-care (01) ==
LOC: LABWHC1 06:50
PROVIDERS: ATTEND Internal Medicine Endocrinology, Diabetes & Metabolism
DX: E11.65 Type 2 diabetes mellitus with hyperglycemia (principal)
CPT/HCPCS: 36415; 80053; 80061; 83036; 84443